=== PATIENT | male | born 1935 | race Caucasian/White ===

== ENCOUNTER 2018-05-15 10:08 | Observation (INO) ==
[2018-05-15] MEDS ORDERED: ONDANSETRON 4 MG/2 ML VIAL IV STA (11:12)
[2018-05-15] MEDS ORDERED: SODIUM CHLORIDE 0.9% 1,000 ML IV STA (11:12)
[2018-05-15 11:38] LABS: Basophils % 0.3 % (0.0-0.8); Eosinophils # 0.1 10*3/uL (0.0-0.87); Eosinophils % 0.7 % (0.00-10.9); Hematocrit 33.3 VOL% (42.0-52.0); Hemoglobin 11.1 GM/DL (14.0-18.0); Immature Granulocytes % 0.7 %; Immature Granulocytes Absolute 0.05 #; Lymphocytes # 0.5 10*3/uL (1.4-4.0); Lymphocytes % 6.8 % (21.2-54.2); Mean Corpuscular HGB Conc 33.3 GM/DL (32-36); Mean Corpuscular Hemoglobin 26 PG (27-34); Mean Corpuscular Volume 77.8 FL (87-102); Mean Platelet Volume 9.8 FL (9.6-12.0); Monocytes # 0.5 10*3/uL (0.11-0.8); Monocytes % 7.5 % (1.7-12.7); Neutrophils # 5.7 10*3/uL (1.4-7.4); Platelet Count 175 T/CUMM (130-400); Red Blood Count 4.28 MC/CUMM (3.8-5.5); Red Cell Distribution Width 15.5 % (9.3-17.3); White Blood Count 6.8 T/CUMM (4-12)
[2018-05-15 11:45] LABS: Apearance,Urine Slightly Hazy (Clear); Bilirubin,Urine Negative (Negative); Blood, Urine Negative (Negative); Glucose,Urine (UA) 50 mg/dL (Negative); Ketones,Urine Negative (Negative); Mucus,Urine Occasional /LPF (Occasional); Nitrite,Urine Negative (Negative); Protein,Urine Negative; RBC,Urine 1 /HPF (0-4); Urine Color Yellow (Yellow); Urine Specific Gravity 1.014 (1.001-1.035)
[2018-05-15 11:46] LABS: Lactic Acid 1.1 MMOL/L (0.4-2.0)
[2018-05-15 11:47] LABS: Albumin 3.5 G/DL (3.4-5.0); Calcium 8.7 MG/DL (8.5-10.1); Osmolality,Calculated 243.2 MOS/KG (273-304); Potassium 4.7 MMOL/L (3.5-5.1); Total Protein 6.6 G/DL (6.4-8.3)
[2018-05-15] MEDS ORDERED: FUROSEMIDE 40 MG/4 ML VIAL IV STA (12:44)
[2018-05-15] MEDS ORDERED: ONDANSETRON 4 MG/2 ML VIAL IV PRN (13:28)
[2018-05-15] MEDS ORDERED: PROMETHAZINE 25 MG/1 ML VIAL IM PRN (13:28)
[2018-05-15] MEDS ORDERED: ENOXAPARIN 30 MG/0.3 ML SYRINGE SUBCUT SCH (13:30)
[2018-05-15] MEDS ORDERED: CLORAZEPATE 3.75 MG TABLET PO PRN (13:33)
[2018-05-15] MEDS: PANTOPRAZOLE 40 MG TABLET PO SCH (14:56)
[2018-05-15] MEDS: FUROSEMIDE 100 MG/10 ML VIAL IV SCH (16:18)
[2018-05-15] MEDS: CARVEDILOL 12.5 MG TABLET PO SCH (16:21)
[2018-05-15] MEDS: ATORVASTATIN 20 MG TABLET PO SCH (21:31)
[2018-05-15] MEDS: traZODone 50 MG TABLET PO SCH (21:35)
[2018-05-15] MEDS: DABIGATRAN 150 MG CAPSULE PO SCH (21:35)
[2018-05-15] MEDS: SERTRALINE 50 MG TABLET PO SCH (21:35)
[2018-05-16 04:45] LABS: Basophils % 0.2 % (0.0-0.8); Eosinophils # 0.1 10*3/uL (0.0-0.87); Eosinophils % 1.2 % (0.00-10.9); Hematocrit 32.5 VOL% (42.0-52.0); Hemoglobin 10.8 GM/DL (14.0-18.0); Immature Granulocytes % 0.6 %; Immature Granulocytes Absolute 0.04 #; Lymphocytes # 0.6 10*3/uL (1.4-4.0); Lymphocytes % 9.5 % (21.2-54.2); Mean Corpuscular HGB Conc 33.2 GM/DL (32-36); Mean Corpuscular Hemoglobin 25 PG (27-34); Mean Corpuscular Volume 76.3 FL (87-102); Mean Platelet Volume 9.3 FL (9.6-12.0); Monocytes # 0.7 10*3/uL (0.11-0.8); Monocytes % 10.6 % (1.7-12.7); Neutrophils # 5.1 10*3/uL (1.4-7.4); Neutrophils % 77.9 % (38.7-73.9); Platelet Count 169 T/CUMM (130-400); Red Blood Count 4.26 MC/CUMM (3.8-5.5); Red Cell Distribution Width 15.5 % (9.3-17.3); White Blood Count 6.5 T/CUMM (4-12)
[2018-05-16 05:22] LABS: Albumin 3.4 G/DL (3.4-5.0); Bilirubin,Total 1.9 MG/DL (0.2-1.0); Calcium 8.5 MG/DL (8.5-10.1); Osmolality,Calculated 245.9 MOS/KG (273-304); Potassium 3.5 MMOL/L (3.5-5.1); Risk Ratio 1.54; Total Protein 6.2 G/DL (6.4-8.3); VLDL CHOLESTEROL 9.8 MG/DL
[2018-05-16] MEDS: DABIGATRAN 150 MG CAPSULE PO SCH ×2 (08:28→21:19)
[2018-05-16] MEDS: LISINOPRIL 20 MG TABLET PO SCH (08:28)
[2018-05-16] MEDS: CARVEDILOL 12.5 MG TABLET PO SCH ×2 (08:29→16:09)
[2018-05-16] MEDS: PANTOPRAZOLE 40 MG TABLET PO SCH (08:29)
[2018-05-16] MEDS: ASPIRIN EC 81 MG TABLET PO SCH (08:29)
[2018-05-16] MEDS: FUROSEMIDE 100 MG/10 ML VIAL IV SCH ×2 (08:29→16:09)
[2018-05-16] MEDS: SERTRALINE 50 MG TABLET PO SCH (21:19)
[2018-05-16] MEDS: ATORVASTATIN 20 MG TABLET PO SCH (21:19)
[2018-05-16] MEDS: traZODone 50 MG TABLET PO SCH (21:19)
[2018-05-17 04:51] LABS: Basophils % 0.3 % (0.0-0.8); Eosinophils # 0.1 10*3/uL (0.0-0.87); Eosinophils % 1.5 % (0.00-10.9); Hematocrit 33.1 VOL% (42.0-52.0); Immature Granulocytes % 0.5 %; Immature Granulocytes Absolute 0.03 #; Lymphocytes # 0.6 10*3/uL (1.4-4.0); Lymphocytes % 9.5 % (21.2-54.2); Mean Corpuscular HGB Conc 33.2 GM/DL (32-36); Mean Corpuscular Hemoglobin 26 PG (27-34); Mean Platelet Volume 9.5 FL (9.6-12.0); Monocytes # 0.8 10*3/uL (0.11-0.8); Monocytes % 11.9 % (1.7-12.7); Neutrophils % 76.3 % (38.7-73.9); Platelet Count 164 T/CUMM (130-400); Red Cell Distribution Width 15.7 % (9.3-17.3); White Blood Count 6.6 T/CUMM (4-12)
[2018-05-17 05:15] LABS: Calcium 8.5 MG/DL (8.5-10.1); Osmolality,Calculated 253.4 MOS/KG (273-304); Potassium 3.9 MMOL/L (3.5-5.1)
[2018-05-17 08:12] VITALS: BP 129/69
[2018-05-17] MEDS: ASPIRIN EC 81 MG TABLET PO SCH (08:34)
[2018-05-17] MEDS: FUROSEMIDE 100 MG/10 ML VIAL IV SCH (08:34)
[2018-05-17] MEDS: DABIGATRAN 150 MG CAPSULE PO SCH (08:34)
[2018-05-17] MEDS: PANTOPRAZOLE 40 MG TABLET PO SCH (08:34)
[2018-05-17] MEDS: LISINOPRIL 20 MG TABLET PO SCH (08:34)
[2018-05-17] MEDS: CARVEDILOL 12.5 MG TABLET PO SCH (08:35)
[2018-05-17] MEDS ORDERED: FUROSEMIDE 40 MG TABLET PO SCH (16:00)
== END 2018-05-17 10:11 | disposition home or self-care (01) ==
LOC: N.EDINP 10:08 → N.ED 10:08 → N.2E 14:09
PROVIDERS: ADMIT Internal Medicine; ATTEND Internal Medicine

== ENCOUNTER 2019-12-15 02:20 | Inpatient (IN) ==
[2019-12-15 03:10] LABS: Basophils % 0.1 % (0.0-0.8); Eosinophils % 0.3 % (0.00-10.9); Hematocrit 45.7 VOL% (42.0-52.0); Hemoglobin 14.3 GM/DL (14.0-18.0); Immature Granulocytes % 0.4 %; Immature Granulocytes Absolute 0.06 #; Lymphocytes # 0.2 10*3/uL (1.4-4.0); Lymphocytes % 1.2 % (21.2-54.2); Mean Corpuscular HGB Conc 31.3 GM/DL (32-36); Mean Corpuscular Volume 89.1 FL (87-102); Mean Platelet Volume 9.3 FL (9.6-12.0); Platelet Count 219 T/CUMM (130-400); Red Blood Count 5.13 MC/CUMM (3.8-5.5); Red Cell Distribution Width 15.7 % (9.3-17.3)
[2019-12-15] MEDS ORDERED: SODIUM CHLORIDE 0.9% 1,000 ML IV STA (03:11)
[2019-12-15 03:23] LABS: Albumin 3.6 G/DL (3.4-5.0); Bilirubin,Total 3.5 MG/DL (0.2-1.0); Osmolality,Calculated 268.5 MOS/KG (273-304); Total Protein 7.5 G/DL (6.4-8.3)
[2019-12-15 04:21] LABS: Lymphocytes 1 % (20-55); Segmented Neutrophils 94 % (50-85); Total Cells Counted 100
[2019-12-15 04:22] LABS: Platelet Estimate Normal
[2019-12-15 04:25] LABS: Polychromasia Slight
[2019-12-15 04:26] LABS: Anisocytosis Slight; Hypochromasia Slight
[2019-12-15 04:27] LABS: Microcytosis 1+
[2019-12-15 04:40] LABS: Apearance,Urine CLEAR (Clear); Bilirubin,Urine Negative (Negative); Blood, Urine Negative (Negative); Glucose,Urine (UA) Negative (Negative); Hyaline Casts,Urine 1 /LPF (0-3); Ketones,Urine Negative (Negative); Mucus,Urine Few /LPF (Occasional); Nitrite,Urine Negative (Negative); Protein,Urine Negative; RBC,Urine 3 /HPF (0-4); Squamous Epithelial Cell,Urine Occasional /HPF (0-10); Urine Color Amber (Yellow); Urine Specific Gravity 1.046 (1.001-1.035); WBC,Urine <1 /HPF (0-6)
[2019-12-15] MEDS ORDERED: PIPERACILLIN/TAZOBACTAM 3,375 MG in SODIUM CHLORIDE 0.9% 100 ML IV STA (04:44)
[2019-12-15] MEDS ORDERED: ACETAMINOPHEN 325 MG TABLET PO PRN (05:22)
[2019-12-15] MEDS ORDERED: ONDANSETRON 4 MG/2 ML VIAL IV PRN (05:22)
[2019-12-15] MEDS ORDERED: DEXTROSE 50% 25 GM/50 ML SYRINGE IV PRN (05:22)
[2019-12-15] MEDS ORDERED: DEXTROSE 10% 250 ML BAG IV PRN (05:22)
[2019-12-15] MEDS ORDERED: GLUCAGON 1 MG VIAL IM PRN ×2 (05:22)
[2019-12-15] MEDS ORDERED: NITROGLYCERIN SL 0.4 MG TABLET SL PRN (05:32)
[2019-12-15] MEDS ORDERED: ACETAMINOPHEN 500 MG TABLET PO STA (06:02)
[2019-12-15] MEDS ORDERED: ACETAMINOPHEN 500 MG TABLET ONE (06:03)
[2019-12-15] MEDS ORDERED: FUROSEMIDE 20 MG TABLET PO SCH (08:00)
[2019-12-15] MEDS: INSULIN REGULAR 100 UNIT/ML SUBCUT SCH ×4 (08:51→20:17)
[2019-12-15] MEDS ORDERED: NON-FORMULARY MEDICATION (Omeprazole 20 MG) PO SCH (09:00)
[2019-12-15 09:29] LABS: Ferritin 38.6 ng/ml (26-388)
[2019-12-15] MEDS: DABIGATRAN 150 MG CAPSULE PO SCH ×2 (10:08→20:17)
[2019-12-15] MEDS: CYANOCOBALAMIN 500 MCG TABLET PO SCH (10:08)
[2019-12-15] MEDS: ASCORBIC ACID 500 MG TABLET PO SCH (10:08)
[2019-12-15] MEDS: carvediloL 12.5 MG TABLET PO SCH ×2 (10:08→17:58)
[2019-12-15] MEDS: PANTOPRAZOLE 40 MG TABLET PO SCH (10:08)
[2019-12-15] MEDS: ASPIRIN EC 81 MG TABLET PO SCH (10:08)
[2019-12-15] MEDS: POTASSIUM CHLORIDE 20 MEQ TABLET PO SCH (10:08)
[2019-12-15] MEDS: FUROSEMIDE 40 MG/4 ML VIAL IV SCH ×2 (10:10→17:58)
[2019-12-15] MEDS: LEVOFLOXACIN INJ 750 MG in PREMIX 1 EACH IV SCH (10:50)
[2019-12-15] MEDS: PIPERACILLIN/TAZOBACTAM 3,375 MG in SODIUM CHLORIDE 0.9% 100 ML IV SCH (18:50)
[2019-12-15] MEDS: traZODone 50 MG TABLET PO SCH (20:16)
[2019-12-15] MEDS: ATORVASTATIN 10 MG TABLET PO SCH (20:17)
[2019-12-15] MEDS: SERTRALINE 50 MG TABLET PO SCH (20:17)
[2019-12-16] MEDS: PIPERACILLIN/TAZOBACTAM 3,375 MG in SODIUM CHLORIDE 0.9% 100 ML IV SCH (02:21)
[2019-12-16 06:38] LABS: Basophils % 0.1 % (0.0-0.8); Hematocrit 37.5 VOL% (42.0-52.0); Immature Granulocytes % 1.7 %; Immature Granulocytes Absolute 0.34 #; Lymphocytes # 0.4 10*3/uL (1.4-4.0); Lymphocytes % 1.8 % (21.2-54.2); Mean Corpuscular Volume 87.6 FL (87-102); Mean Platelet Volume 9.5 FL (9.6-12.0); Monocytes % 3.8 % (1.7-12.7); Neutrophils % 92.6 % (38.7-73.9); Platelet Count 126 T/CUMM (130-400); Red Blood Count 4.28 MC/CUMM (3.8-5.5); White Blood Count 20.2 T/CUMM (4-12)
[2019-12-16 07:03] LABS: Albumin 2.8 G/DL (3.4-5.0); Calcium 8.2 MG/DL (8.5-10.1); Osmolality,Calculated 270.7 MOS/KG (273-304); Total Protein 6.2 G/DL (6.4-8.3)
[2019-12-16 07:11] LABS: Hypochromasia 1+; Lymphocytes 1 % (20-55); Ovalocytes Slight; Platelet Estimate Normal; Segmented Neutrophils 98 % (50-85); Total Cells Counted 100
[2019-12-16 07:12] LABS: Microcytosis 1+
[2019-12-16] MEDS: INSULIN REGULAR 100 UNIT/ML SUBCUT SCH ×4 (07:31→20:12)
[2019-12-16] MEDS: LEVOFLOXACIN INJ 750 MG in PREMIX 1 EACH IV SCH (08:26)
[2019-12-16] MEDS: ASCORBIC ACID 500 MG TABLET PO SCH (08:29)
[2019-12-16] MEDS: CYANOCOBALAMIN 500 MCG TABLET PO SCH (08:29)
[2019-12-16] MEDS: ASPIRIN EC 81 MG TABLET PO SCH (08:29)
[2019-12-16] MEDS: DABIGATRAN 150 MG CAPSULE PO SCH (08:29)
[2019-12-16] MEDS: carvediloL 12.5 MG TABLET PO SCH ×2 (08:29→16:29)
[2019-12-16] MEDS: POTASSIUM CHLORIDE 20 MEQ TABLET PO SCH (08:29)
[2019-12-16] MEDS: PANTOPRAZOLE 40 MG TABLET PO SCH (08:29)
[2019-12-16] MEDS: FUROSEMIDE 40 MG/4 ML VIAL IV SCH ×2 (08:29→16:28)
[2019-12-16] MEDS: metroNIDAZOLE INJ 500 MG in PREMIX 1 EACH IV SCH ×3 (10:32→20:11)
[2019-12-16 10:35] LABS: Hepatitis B Core IgM Quant 0.18 Index; Hepatitis B Surface Ag Result Negative (Negative); Hepatitis C Virus Ab Quant 0.07 Index; Hepatitis C Virus Ab Result Negative (Negative)
[2019-12-16 11:39] LABS: Bilirubin,Direct 4.74 MG/DL (0.0-0.20); Bilirubin,Indirect 1.1 MG/DL (0.0-1.0); Bilirubin,Total 5.8 MG/DL (0.2-1.0)
[2019-12-16] MEDS: traZODone 50 MG TABLET PO SCH (20:11)
[2019-12-16] MEDS: SERTRALINE 50 MG TABLET PO SCH (20:12)
[2019-12-16] MEDS: ATORVASTATIN 10 MG TABLET PO SCH (20:12)
[2019-12-17] MEDS: metroNIDAZOLE INJ 500 MG in PREMIX 1 EACH IV SCH ×5 (02:15→21:00)
[2019-12-17 06:16] LABS: Basophils % 0.2 % (0.0-0.8); Eosinophils % 0.1 % (0.00-10.9); Hematocrit 37.9 VOL% (42.0-52.0); Hemoglobin 12.2 GM/DL (14.0-18.0); Immature Granulocytes Absolute 0.34 #; Lymphocytes # 0.4 10*3/uL (1.4-4.0); Lymphocytes % 2.2 % (21.2-54.2); Mean Corpuscular HGB Conc 32.2 GM/DL (32-36); Mean Corpuscular Volume 86.7 FL (87-102); Mean Platelet Volume 9.8 FL (9.6-12.0); Monocytes % 2.8 % (1.7-12.7); Neutrophils % 92.7 % (38.7-73.9); Platelet Count 143 T/CUMM (130-400); Red Blood Count 4.37 MC/CUMM (3.8-5.5); Red Cell Distribution Width 15.9 % (9.3-17.3); White Blood Count 17.2 T/CUMM (4-12)
[2019-12-17 06:34] LABS: Lymphocytes 1 % (20-55); Segmented Neutrophils 97 % (50-85); Total Cells Counted 100
[2019-12-17 06:35] LABS: Hypochromasia Slight; Microcytosis Slight; Ovalocytes Slight; Platelet Estimate Normal
[2019-12-17 06:42] LABS: Calcium 8.1 MG/DL (8.5-10.1); Osmolality,Calculated 272.5 MOS/KG (273-304)
[2019-12-17] MEDS ORDERED: POTASSIUM CHLORIDE 20 MEQ TABLET PO ONE (08:00)
[2019-12-17 08:33] LABS: Albumin 2.7 G/DL (3.4-5.0); Bilirubin,Direct 1.9 MG/DL (0.0-0.20); Bilirubin,Total 2.9 MG/DL (0.2-1.0); Total Protein 5.9 G/DL (6.4-8.3)
[2019-12-17] MEDS: INSULIN REGULAR 100 UNIT/ML SUBCUT SCH ×4 (08:44→21:00)
[2019-12-17] MEDS: CYANOCOBALAMIN 500 MCG TABLET PO SCH (08:46)
[2019-12-17] MEDS: POTASSIUM CHLORIDE 20 MEQ TABLET PO SCH (08:46)
[2019-12-17] MEDS: carvediloL 12.5 MG TABLET PO SCH ×2 (08:46→17:00)
[2019-12-17] MEDS: ASPIRIN EC 81 MG TABLET PO SCH (08:46)
[2019-12-17] MEDS: PANTOPRAZOLE 40 MG TABLET PO SCH (08:46)
[2019-12-17] MEDS: FUROSEMIDE 40 MG/4 ML VIAL IV SCH ×2 (08:46→16:11)
[2019-12-17] MEDS: LEVOFLOXACIN INJ 750 MG in PREMIX 1 EACH IV SCH (08:46)
[2019-12-17] MEDS: ASCORBIC ACID 500 MG TABLET PO SCH (08:47)
[2019-12-17] MEDS: traZODone 50 MG TABLET PO SCH (20:59)
[2019-12-17] MEDS: SERTRALINE 50 MG TABLET PO SCH (21:01)
[2019-12-17] MEDS: ATORVASTATIN 10 MG TABLET PO SCH (21:01)
[2019-12-17] MEDS: DABIGATRAN 150 MG CAPSULE PO SCH (21:01)
[2019-12-18] MEDS: metroNIDAZOLE INJ 500 MG in PREMIX 1 EACH IV SCH ×2 (03:11→08:45)
[2019-12-18 05:58] LABS: Basophils % 0.1 % (0.0-0.8); Eosinophils % 0.3 % (0.00-10.9); Hemoglobin 11.8 GM/DL (14.0-18.0); Immature Granulocytes % 1.2 %; Immature Granulocytes Absolute 0.14 #; Lymphocytes # 0.6 10*3/uL (1.4-4.0); Lymphocytes % 4.9 % (21.2-54.2); Mean Corpuscular HGB Conc 31.9 GM/DL (32-36); Mean Corpuscular Volume 86.7 FL (87-102); Mean Platelet Volume 10.2 FL (9.6-12.0); Monocytes % 3.5 % (1.7-12.7); Platelet Count 151 T/CUMM (130-400); Red Blood Count 4.27 MC/CUMM (3.8-5.5); Red Cell Distribution Width 16.1 % (9.3-17.3); White Blood Count 11.4 T/CUMM (4-12)
[2019-12-18 06:26] LABS: Calcium 8.1 MG/DL (8.5-10.1); Osmolality,Calculated 277.1 MOS/KG (273-304)
[2019-12-18 06:27] LABS: Albumin 2.8 G/DL (3.4-5.0); Bilirubin,Direct 1.5 MG/DL (0.0-0.20); Bilirubin,Indirect 0.9 MG/DL (0.0-1.0); Bilirubin,Total 2.4 MG/DL (0.2-1.0); Total Protein 5.9 G/DL (6.4-8.3)
[2019-12-18 06:39] LABS: Lymphocytes 4 % (20-55); Platelet Estimate Adequate; Segmented Neutrophils 94 % (50-85); Total Cells Counted 100
[2019-12-18 06:40] LABS: Hypochromasia 1+; Microcytosis Slight; Ovalocytes Slight
[2019-12-18] MEDS: INSULIN REGULAR 100 UNIT/ML SUBCUT SCH ×4 (08:10→20:47)
[2019-12-18] MEDS: PANTOPRAZOLE 40 MG TABLET PO SCH (08:40)
[2019-12-18] MEDS: ASPIRIN EC 81 MG TABLET PO SCH (08:40)
[2019-12-18] MEDS: POTASSIUM CHLORIDE 20 MEQ TABLET PO SCH (08:40)
[2019-12-18] MEDS: ASCORBIC ACID 500 MG TABLET PO SCH (08:41)
[2019-12-18] MEDS: carvediloL 12.5 MG TABLET PO SCH ×2 (08:41→16:00)
[2019-12-18] MEDS: FUROSEMIDE 40 MG/4 ML VIAL IV SCH ×2 (08:43→15:58)
[2019-12-18] MEDS: LEVOFLOXACIN INJ 750 MG in PREMIX 1 EACH IV SCH (08:45)
[2019-12-18] MEDS: CYANOCOBALAMIN 500 MCG TABLET PO SCH (09:43)
[2019-12-18] MEDS: DABIGATRAN 150 MG CAPSULE PO SCH ×2 (11:47→20:45)
[2019-12-18] MEDS: ATORVASTATIN 10 MG TABLET PO SCH (20:45)
[2019-12-18] MEDS: SERTRALINE 50 MG TABLET PO SCH (20:45)
[2019-12-18] MEDS: traZODone 50 MG TABLET PO SCH (20:45)
[2019-12-19 07:01] LABS: Basophils % 0.2 % (0.0-0.8); Eosinophils % 0.4 % (0.00-10.9); Hematocrit 41.4 VOL% (42.0-52.0); Hemoglobin 13.2 GM/DL (14.0-18.0); Immature Granulocytes % 0.7 %; Immature Granulocytes Absolute 0.06 #; Lymphocytes # 0.6 10*3/uL (1.4-4.0); Lymphocytes % 7.5 % (21.2-54.2); Mean Corpuscular HGB Conc 31.9 GM/DL (32-36); Mean Corpuscular Volume 87.2 FL (87-102); Mean Platelet Volume 9.5 FL (9.6-12.0); Monocytes % 5.6 % (1.7-12.7); Neutrophils % 85.6 % (38.7-73.9); Platelet Count 149 T/CUMM (130-400); Red Blood Count 4.75 MC/CUMM (3.8-5.5); Red Cell Distribution Width 15.7 % (9.3-17.3); White Blood Count 8.3 T/CUMM (4-12)
[2019-12-19 07:22] LABS: Calcium 8.7 MG/DL (8.5-10.1); Osmolality,Calculated 276.1 MOS/KG (273-304)
[2019-12-19 07:24] LABS: Bilirubin,Direct 1.54 MG/DL (0.0-0.20); Bilirubin,Indirect 1.9 MG/DL (0.0-1.0); Bilirubin,Total 3.4 MG/DL (0.2-1.0); Total Protein 6.4 G/DL (6.4-8.3)
[2019-12-19 07:25] LABS: Ferritin 61.7 ng/ml (26-388)
[2019-12-19] MEDS: INSULIN REGULAR 100 UNIT/ML SUBCUT SCH ×2 (07:32→11:40)
[2019-12-19] MEDS ORDERED: LEVOFLOXACIN 750 MG TABLET PO SCH (09:00)
[2019-12-19] MEDS: FUROSEMIDE 40 MG/4 ML VIAL IV SCH (09:16)
[2019-12-19] MEDS: POTASSIUM CHLORIDE 20 MEQ TABLET PO SCH (09:16)
[2019-12-19] MEDS: PANTOPRAZOLE 40 MG TABLET PO SCH (09:17)
[2019-12-19] MEDS: ASPIRIN EC 81 MG TABLET PO SCH (09:17)
[2019-12-19] MEDS: DABIGATRAN 150 MG CAPSULE PO SCH (09:17)
[2019-12-19] MEDS: ASCORBIC ACID 500 MG TABLET PO SCH (09:17)
[2019-12-19] MEDS: CYANOCOBALAMIN 500 MCG TABLET PO SCH (09:17)
[2019-12-19] MEDS: carvediloL 12.5 MG TABLET PO SCH (09:17)
[2019-12-19 12:45] VITALS: BP 140/83
== END 2019-12-19 13:58 | disposition home health service (06) | DRG 871 ==
LOC: N.ED 02:20 → N.EDINP 05:22 → SUATTDRO 05:22 → N.EDINP 07:05 → N.CC 07:17 → N.2E 12-17 14:41 → N.3E 12-18 18:18
PROVIDERS: ADMIT Family Medicine; ATTEND Internal Medicine

== ENCOUNTER 2020-10-15 08:43 | Observation (INO) ==
[2020-10-15] MEDS ORDERED: FUROSEMIDE 100 MG/10 ML VIAL IV STA (09:06)
[2020-10-15] MEDS ORDERED: ONDANSETRON 4 MG/2 ML VIAL IV STA (09:15)
[2020-10-15 09:34] LABS: Basophils % 0.3 % (0.0-0.8); Eosinophils # 0.1 10*3/uL (0.0-0.87); Eosinophils % 0.5 % (0.00-10.9); Hematocrit 41.1 VOL% (42.0-52.0); Hemoglobin 12.7 GM/DL (14.0-18.0); Immature Granulocytes % 0.8 %; Immature Granulocytes Absolute 0.12 #; Lymphocytes # 0.4 10*3/uL (1.4-4.0); Lymphocytes % 2.3 % (21.2-54.2); Mean Corpuscular HGB Conc 30.9 GM/DL (32-36); Mean Platelet Volume 10.1 FL (9.6-12.0); Monocytes % 4.5 % (1.7-12.7); Neutrophils % 91.6 % (38.7-73.9); Platelet Count 202 T/CUMM (130-400); Red Blood Count 4.67 MC/CUMM (3.8-5.5); White Blood Count 15.4 T/CUMM (4-12)
[2020-10-15 09:45] LABS: INR 1.3; Partial Thromboplastin Time 35.8 SECS (23.9-33.8)
[2020-10-15 09:48] LABS: Blood, Urine Negative (Negative); Glucose,Urine (UA) Negative (Negative); Hyaline Casts,Urine 1 /LPF (0-3); Ketones,Urine Negative (Negative); Mucus,Urine Few /LPF (Occasional); Nitrite,Urine Negative (Negative); Protein,Urine 30 MG/DL; RBC,Urine 6 /HPF (0-4); Squamous Epithelial Cell,Urine Occasional /HPF (0-10); Urine Appearance CLEAR (Clear); Urine Color Amber (Yellow); Urine Specific Gravity 1.024 (1.001-1.035); WBC,Urine 2 /HPF (0-6)
[2020-10-15 09:49] LABS: Bilirubin,Urine Moderate mg/dL (Negative)
[2020-10-15 09:54] LABS: Band Neutrophils 2 % (0-10); Eosinophils 1 % (0-10); Hypochromasia 1+; Lymphocytes 3 % (20-55); Microcytosis 1+; Ovalocytes Slight; Segmented Neutrophils 90 % (50-85); Total Cells Counted 100
[2020-10-15 09:55] LABS: Platelet Estimate Normal
[2020-10-15 10:05] LABS: Albumin 3.7 G/DL (3.4-5.0); Bilirubin,Total 4.3 MG/DL (0.2-1.0); Calcium 9.4 MG/DL (8.5-10.1); Osmolality,Calculated 283.5 MOS/KG (273-304); Total Protein 7.1 G/DL (6.4-8.2)
[2020-10-15] MEDS ORDERED: LEVOFLOXACIN INJ 500 MG in PREMIX 1 EACH IV STA (10:42)
[2020-10-15] MEDS ORDERED: DEXTROSE 50% 25 GM/50 ML VIAL IV PRN (12:22)
[2020-10-15] MEDS ORDERED: DOCUSATE SODIUM 100 MG CAPSULE PO PRN (12:22)
[2020-10-15] MEDS ORDERED: hydrALAZINE 20 MG/1 ML VIAL IV PRN (12:22)
[2020-10-15] MEDS ORDERED: ONDANSETRON 4 MG/2 ML VIAL IV PRN (12:22)
[2020-10-15] MEDS ORDERED: guaiFENesin/DM ER 600-30 MG TABLET PO PRN (12:22)
[2020-10-15] MEDS ORDERED: GLUCAGON 1 MG VIAL IM PRN (12:22)
[2020-10-15] MEDS ORDERED: ACETAMINOPHEN 325 MG TABLET PO PRN (12:22)
[2020-10-15] MEDS ORDERED: MAGNESIUM SULF RIDER 2 GM in PREMIX 1 EACH IV PRN (12:29)
[2020-10-15] MEDS ORDERED: MAGNESIUM SULF RIDER 4 GM in PREMIX 1 EACH IV PRN (12:29)
[2020-10-15] MEDS ORDERED: NITROGLYCERIN SL 0.4 MG TABLET SL PRN (12:30)
[2020-10-15] MEDS ORDERED: ENOXAPARIN 40 MG/0.4 ML SYRINGE SUBCUT SCH (12:30)
[2020-10-15] MEDS ORDERED: POTASSIUM CHLORIDE 20 MEQ TABLET PO PRN (12:30)
[2020-10-15] MEDS: ALBUTEROL 2.5 MG/3 ML NEB RESP TX SCH ×2 (13:50→18:08)
[2020-10-15] MEDS: ursodioL 300 MG CAPSULE PO SCH (20:44)
[2020-10-15] MEDS: DABIGATRAN 150 MG CAPSULE PO SCH (20:44)
[2020-10-15] MEDS: carvediloL 12.5 MG TABLET PO SCH (20:44)
[2020-10-15] MEDS: SERTRALINE 50 MG TABLET PO SCH (20:44)
[2020-10-15] MEDS ORDERED: ATORVASTATIN 10 MG TABLET PO SCH (21:00)
[2020-10-16] MEDS: ALBUTEROL 2.5 MG/3 ML NEB RESP TX SCH ×4 (01:02→21:06)
[2020-10-16 04:41] LABS: Basophils % 0.1 % (0.0-0.8); Hematocrit 35.4 VOL% (42.0-52.0); Hemoglobin 11.1 GM/DL (14.0-18.0); Immature Granulocytes Absolute 0.13 #; Lymphocytes # 0.3 10*3/uL (1.4-4.0); Lymphocytes % 2.6 % (21.2-54.2); Mean Corpuscular HGB Conc 31.4 GM/DL (32-36); Mean Corpuscular Volume 86.6 FL (87-102); Mean Platelet Volume 9.9 FL (9.6-12.0); Monocytes % 5.6 % (1.7-12.7); Neutrophils % 90.7 % (38.7-73.9); Platelet Count 147 T/CUMM (130-400); Red Blood Count 4.09 MC/CUMM (3.8-5.5); White Blood Count 12.6 T/CUMM (4-12)
[2020-10-16 05:11] LABS: Band Neutrophils 1 % (0-10); Hypochromasia 1+; Lymphocytes 1 % (20-55); Microcytosis 1+; Ovalocytes Slight; Platelet Estimate Adequate; Segmented Neutrophils 93 % (50-85); Total Cells Counted 100
[2020-10-16 05:27] LABS: Blood Urea Nitrogen 26 MG/DL (7-18); Calcium 8.6 MG/DL (8.5-10.1); Carbon Dioxide 33 MMOL/L (21-32); Estimated Glom Filtration Rate 66 ML/MIN; Glucose 122 MG/DL (74-106); HDL Cholesterol 39 MG/DL (40-60); Potassium 3.7 MMOL/L (3.5-5.1); Risk Ratio 1.28; Sodium 136 MMOL/L (136-145); Thyroid Stimulating Hormone 0.771 uIU/ml (0.358-3.74); Triglycerides 39 MG/DL (2-150); VLDL CHOLESTEROL 7.8 MG/DL
[2020-10-16] MEDS: ursodioL 300 MG CAPSULE PO SCH ×2 (09:44→20:43)
[2020-10-16] MEDS: DABIGATRAN 150 MG CAPSULE PO SCH ×2 (09:45→20:50)
[2020-10-16] MEDS: CYANOCOBALAMIN 500 MCG TABLET PO SCH (09:45)
[2020-10-16] MEDS: carvediloL 12.5 MG TABLET PO SCH ×2 (09:45→20:42)
[2020-10-16] MEDS: POTASSIUM CHLORIDE 10 MEQ TABLET PO SCH (09:46)
[2020-10-16] MEDS: ASCORBIC ACID 500 MG TABLET PO SCH (09:46)
[2020-10-16] MEDS: ASPIRIN EC 81 MG TABLET PO SCH (09:46)
[2020-10-16] MEDS: PANTOPRAZOLE 40 MG TABLET PO SCH (09:46)
[2020-10-16] MEDS: FUROSEMIDE 40 MG/4 ML VIAL IV SCH (09:55)
[2020-10-16] MEDS: SERTRALINE 50 MG TABLET PO SCH (20:51)
[2020-10-17] MEDS: ALBUTEROL 2.5 MG/3 ML NEB RESP TX SCH ×2 (02:50→07:25)
[2020-10-17 06:08] LABS: Basophils % 0.4 % (0.0-0.8); Eosinophils # 0.1 10*3/uL (0.0-0.87); Eosinophils % 1.5 % (0.00-10.9); Hematocrit 34.3 VOL% (42.0-52.0); Hemoglobin 10.5 GM/DL (14.0-18.0); Immature Granulocytes % 0.5 %; Immature Granulocytes Absolute 0.04 #; Lymphocytes # 0.5 10*3/uL (1.4-4.0); Lymphocytes % 6.9 % (21.2-54.2); Mean Corpuscular HGB Conc 30.6 GM/DL (32-36); Mean Corpuscular Volume 88.6 FL (87-102); Mean Platelet Volume 10.1 FL (9.6-12.0); Monocytes % 6.8 % (1.7-12.7); Neutrophils % 83.9 % (38.7-73.9); Platelet Count 149 T/CUMM (130-400); Red Blood Count 3.87 MC/CUMM (3.8-5.5); Red Cell Distribution Width 15.1 % (9.3-17.3); White Blood Count 7.4 T/CUMM (4-12)
[2020-10-17 06:45] LABS: Albumin 2.8 G/DL (3.4-5.0); Bilirubin,Direct 2.09 MG/DL (0.0-0.20); Bilirubin,Indirect 1.5 MG/DL (0.0-1.0); Bilirubin,Total 3.6 MG/DL (0.2-1.0); Total Protein 5.7 G/DL (6.4-8.2)
[2020-10-17 07:00] LABS: Band Neutrophils 4 % (0-10); Eosinophils 3 % (0-10); Lymphocytes 9 % (20-55); Platelet Estimate Adequate; Segmented Neutrophils 76 % (50-85); Total Cells Counted 100
[2020-10-17 07:01] LABS: Anisocytosis 1+
[2020-10-17 07:12] LABS: Calcium 8.6 MG/DL (8.5-10.1); Osmolality,Calculated 282.4 MOS/KG (273-304)
[2020-10-17 08:31] VITALS: BP 132/98
[2020-10-17] MEDS ORDERED: CEFUROXIME 500 MG TABLET PO SCH (09:00)
[2020-10-17] MEDS ORDERED: AZITHROMYCIN 250 MG TABLET PO SCH (09:00)
[2020-10-17] MEDS: carvediloL 12.5 MG TABLET PO SCH (09:44)
[2020-10-17] MEDS: POTASSIUM CHLORIDE 10 MEQ TABLET PO SCH (09:44)
[2020-10-17] MEDS: ursodioL 300 MG CAPSULE PO SCH (09:45)
[2020-10-17] MEDS: PANTOPRAZOLE 40 MG TABLET PO SCH (09:45)
[2020-10-17] MEDS: ASCORBIC ACID 500 MG TABLET PO SCH (09:45)
[2020-10-17] MEDS: DABIGATRAN 150 MG CAPSULE PO SCH (09:45)
[2020-10-17] MEDS: ASPIRIN EC 81 MG TABLET PO SCH (09:45)
[2020-10-17] MEDS: FUROSEMIDE 40 MG/4 ML VIAL IV SCH (09:46)
[2020-10-17] MEDS: CYANOCOBALAMIN 500 MCG TABLET PO SCH (10:28)
== END 2020-10-17 14:00 | disposition home or self-care (01) ==
LOC: N.ED 08:43 → N.EDINP 08:43 → N.TELES 12:52
PROVIDERS: ADMIT Internal Medicine; ATTEND Internal Medicine

== ENCOUNTER 2021-04-14 14:50 | Observation (INO) ==
[2021-04-14] MEDS ORDERED: ONDANSETRON 4 MG/2 ML VIAL IV STA (15:19)
[2021-04-14] MEDS ORDERED: SODIUM CHLORIDE 0.9% 1,000 ML IV STA (15:19)
[2021-04-14] MEDS ORDERED: VANCOMYCIN INJ 1,000 MG in SODIUM CHLORIDE 0.9% 250 ML IV STA (16:05)
[2021-04-14 16:27] LABS: Basophils % 0.1 % (0.0-0.8); Hematocrit 34.6 VOL% (42.0-52.0); Hemoglobin 10.6 GM/DL (14.0-18.0); Immature Granulocytes Absolute 0.11 #; Lymphocytes # 0.3 10*3/uL (1.4-4.0); Lymphocytes % 2.3 % (21.2-54.2); Mean Corpuscular HGB Conc 30.6 GM/DL (32-36); Monocytes % 3.2 % (1.7-12.7); Neutrophils % 93.4 % (38.7-73.9); Platelet Count 153 T/CUMM (130-400); Red Blood Count 4.17 MC/CUMM (3.8-5.5); Red Cell Distribution Width 16.5 % (9.3-17.3); White Blood Count 11.5 T/CUMM (4-12)
[2021-04-14 16:41] LABS: Albumin 3.1 G/DL (3.4-5.0); Bilirubin,Total 4.6 MG/DL (0.20-1.00); Calcium 8.6 MG/DL (8.5-10.1); Potassium 4.6 MMOL/L (3.5-5.1); Total Protein 6.5 G/DL (6.4-8.2)
[2021-04-14 17:07] LABS: Hypochromasia 1+; Lymphocytes 3 % (20-55); Metamyelocytes 1 %; Microcytosis 1+; Platelet Estimate Adequate; Segmented Neutrophils 96 % (50-85); Total Cells Counted 100
[2021-04-14] MEDS ORDERED: GLUCAGON 1 MG VIAL IM PRN (17:24)
[2021-04-14] MEDS ORDERED: ACETAMINOPHEN 325 MG TABLET PO PRN (17:24)
[2021-04-14] MEDS ORDERED: DOCUSATE SODIUM 100 MG CAPSULE PO PRN (17:24)
[2021-04-14] MEDS ORDERED: DEXTROSE 50% 25 GM/50 ML VIAL IV PRN (17:24)
[2021-04-14] MEDS ORDERED: ONDANSETRON 4 MG/2 ML VIAL IV PRN (17:24)
[2021-04-14 17:29] LABS: Bilirubin,Urine Negative (Negative); Blood, Urine Negative (Negative); Glucose,Urine (UA) Negative (Negative); Hyaline Casts,Urine 1 /LPF (0-3); Ketones,Urine Negative (Negative); Mucus,Urine Occasional /LPF (Occasional); Nitrite,Urine Negative (Negative); Protein,Urine Negative; RBC,Urine 3 /HPF (0-4); Urine Appearance CLEAR (Clear); Urine Color Amber (Yellow); Urine Specific Gravity 1.013 (1.001-1.035)
[2021-04-14] MEDS: traZODone 50 MG TABLET PO SCH (21:09)
[2021-04-14] MEDS: DABIGATRAN 150 MG CAPSULE PO SCH (21:09)
[2021-04-14] MEDS: carvediloL 12.5 MG TABLET PO SCH (21:10)
[2021-04-14] MEDS: SODIUM CHLORIDE 0.45% 1,000 ML IV SCH (21:13)
[2021-04-15] MEDS: ursodioL 300 MG CAPSULE PO SCH ×3 (00:42→20:01)
[2021-04-15 05:23] LABS: Basophils % 0.3 % (0.0-0.8); Eosinophils # 0.1 10*3/uL (0.0-0.87); Eosinophils % 1.6 % (0.00-10.9); Hematocrit 31.3 VOL% (42.0-52.0); Hemoglobin 9.6 GM/DL (14.0-18.0); Immature Granulocytes % 0.3 %; Immature Granulocytes Absolute 0.02 #; Lymphocytes # 0.5 10*3/uL (1.4-4.0); Lymphocytes % 9.4 % (21.2-54.2); Mean Corpuscular HGB Conc 30.7 GM/DL (32-36); Mean Platelet Volume 9.9 FL (9.6-12.0); Monocytes % 7.5 % (1.7-12.7); Neutrophils % 80.9 % (38.7-73.9); Platelet Count 123 T/CUMM (130-400); Red Blood Count 3.77 MC/CUMM (3.8-5.5); Red Cell Distribution Width 16.7 % (9.3-17.3); White Blood Count 5.8 T/CUMM (4-12)
[2021-04-15 05:40] LABS: Albumin 2.8 G/DL (3.4-5.0); Bilirubin,Total 4.4 MG/DL (0.20-1.00); Calcium 8.2 MG/DL (8.5-10.1); Potassium 4.2 MMOL/L (3.5-5.1); Total Protein 5.7 G/DL (6.4-8.2)
[2021-04-15] MEDS: ASPIRIN EC 81 MG TABLET PO SCH (09:07)
[2021-04-15] MEDS: SODIUM CHLORIDE 0.45% 1,000 ML IV SCH ×2 (09:07→23:16)
[2021-04-15] MEDS: CHOLECALCIFEROL 1,000 UNIT TABLET PO SCH ×2 (09:07→20:00)
[2021-04-15] MEDS: DABIGATRAN 150 MG CAPSULE PO SCH (09:07)
[2021-04-15] MEDS: ASCORBIC ACID 500 MG TABLET PO SCH (09:08)
[2021-04-15] MEDS: carvediloL 12.5 MG TABLET PO SCH ×2 (09:08→18:22)
[2021-04-15] MEDS: PANTOPRAZOLE 40 MG TABLET PO SCH (09:08)
[2021-04-15] MEDS: AMPICILLIN INJ 2,000 MG in SODIUM CHLORIDE 0.9% 100 ML IV SCH ×4 (13:59→23:16)
[2021-04-15] MEDS: traZODone 50 MG TABLET PO SCH (20:01)
[2021-04-15] MEDS ORDERED: CYANOCOBALAMIN 500 MCG TABLET PO SCH (21:00)
[2021-04-16] MEDS: AMPICILLIN INJ 2,000 MG in SODIUM CHLORIDE 0.9% 100 ML IV SCH ×2 (02:09→06:14)
[2021-04-16 05:53] LABS: Basophils % 0.4 % (0.0-0.8); Eosinophils # 0.1 10*3/uL (0.0-0.87); Hemoglobin 10.5 GM/DL (14.0-18.0); Immature Granulocytes % 0.4 %; Immature Granulocytes Absolute 0.03 #; Lymphocytes # 0.4 10*3/uL (1.4-4.0); Lymphocytes % 6.4 % (21.2-54.2); Mean Corpuscular Volume 83.5 FL (87-102); Mean Platelet Volume 9.7 FL (9.6-12.0); Monocytes % 6.4 % (1.7-12.7); Neutrophils % 84.4 % (38.7-73.9); Platelet Count 144 T/CUMM (130-400); Red Blood Count 4.19 MC/CUMM (3.8-5.5); Red Cell Distribution Width 16.7 % (9.3-17.3); White Blood Count 6.9 T/CUMM (4-12)
[2021-04-16 06:08] LABS: Bilirubin,Total 2.9 MG/DL (0.20-1.00); Calcium 8.6 MG/DL (8.5-10.1); Osmolality,Calculated 273.1 MOS/KG (273-304); Potassium 4.8 MMOL/L (3.5-5.1); Total Protein 6.2 G/DL (6.4-8.2)
[2021-04-16 08:33] VITALS: BP 171/67
[2021-04-16] MEDS: CHOLECALCIFEROL 1,000 UNIT TABLET PO SCH (09:19)
[2021-04-16] MEDS: carvediloL 12.5 MG TABLET PO SCH (09:19)
[2021-04-16] MEDS: ASPIRIN EC 81 MG TABLET PO SCH (09:20)
[2021-04-16] MEDS: ursodioL 300 MG CAPSULE PO SCH (09:20)
[2021-04-16] MEDS: ASCORBIC ACID 500 MG TABLET PO SCH (09:20)
[2021-04-16] MEDS: PANTOPRAZOLE 40 MG TABLET PO SCH (09:20)
== END 2021-04-16 11:09 | disposition home or self-care (01) ==
LOC: N.EDINP 14:50 → N.ED 14:50 → N.5E 18:15
PROVIDERS: ADMIT Hospitalist; ATTEND Hospitalist

== ENCOUNTER 2021-07-23 17:13 | Inpatient (IN) ==
[2021-07-23] MEDS ORDERED: PANTOPRAZOLE 40 MG VIAL IV STA (18:03)
[2021-07-23 18:22] LABS: Basophils % 0.2 % (0.0-0.8); Eosinophils # 0.1 10*3/uL (0.0-0.87); Eosinophils % 1.6 % (0.00-10.9); Hematocrit 23.3 VOL% (42.0-52.0); Immature Granulocytes % 0.7 %; Immature Granulocytes Absolute 0.04 #; Lymphocytes # 0.8 10*3/uL (1.4-4.0); Lymphocytes % 14.6 % (21.2-54.2); Mean Corpuscular HGB Conc 26.6 GM/DL (32-36); Mean Corpuscular Volume 74.9 FL (87-102); Monocytes % 8.1 % (1.7-12.7); Neutrophils % 74.8 % (38.7-73.9); Platelet Count 138 T/CUMM (130-400); Red Blood Count 3.11 MC/CUMM (3.8-5.5); Red Cell Distribution Width 21.1 % (9.3-17.3); White Blood Count 5.6 T/CUMM (4-12)
[2021-07-23 18:29] LABS: Hemoglobin 6.2 GM/DL (14.0-18.0)
[2021-07-23 18:46] LABS: Albumin 2.9 G/DL (3.4-5.0); Bilirubin,Total 1.2 MG/DL (0.20-1.00); Calcium 8.5 MG/DL (8.5-10.1); Osmolality,Calculated 289.4 MOS/KG (273-304); Potassium 4.3 MMOL/L (3.5-5.1); Total Protein 6.1 G/DL (6.4-8.2)
[2021-07-23] MEDS ORDERED: FUROSEMIDE 40 MG/4 ML VIAL IV STA (19:34)
[2021-07-23] MEDS ORDERED: ONDANSETRON 4 MG/2 ML VIAL IV PRN (19:56)
[2021-07-23] MEDS ORDERED: GLUCAGON 1 MG VIAL IM PRN (19:56)
[2021-07-23] MEDS ORDERED: MAGNESIUM SULF RIDER 2 GM/50 ML PREMIX IV PRN (19:56)
[2021-07-23] MEDS ORDERED: MAGNESIUM SULF RIDER 4 GM/100 ML PREMIX IV PRN (19:56)
[2021-07-23] MEDS ORDERED: SODIUM CHLORIDE 0.9% 1,000 ML IV PRN (19:56)
[2021-07-23 20:10] LABS: INR 1.4; PT Patient Result 14.8 SECS (10.5-12.0)
[2021-07-23] MEDS ORDERED: DEXTROSE 10% 250 ML BAG IV PRN (20:15)
[2021-07-23 20:49] LABS: Bilirubin,Urine Negative (Negative); Blood, Urine Small mg/dL (Negative); Glucose,Urine (UA) Negative (Negative); Ketones,Urine Negative (Negative); Mucus,Urine Occasional /LPF (Occasional); Nitrite,Urine Negative (Negative); Protein,Urine Negative; RBC,Urine 3 /HPF (0-4); Squamous Epithelial Cell,Urine Occasional /HPF (0-10); Urine Appearance CLEAR (Clear); Urine Color Straw (Yellow); Urine Specific Gravity 1.005 (1.001-1.035); Urine Urobilinogen < 2.0 EU/DL (<2.0)
[2021-07-23 20:57] LABS: Thyroid Stimulating Hormone 2.58 uIU/ml (0.358-3.74)
[2021-07-23 23:04] LABS: Hematocrit 22.4 VOL% (42.0-52.0)
[2021-07-24] MEDS: LACTULOSE 20 GM/30 ML UDCUP PO SCH ×3 (02:00→20:45)
[2021-07-24] MEDS ORDERED: FUROSEMIDE 40 MG/4 ML VIAL IV SCH (04:00)
[2021-07-24] MEDS: PANTOPRAZOLE 40 MG VIAL IV SCH ×2 (08:29→20:45)
[2021-07-24 09:02] LABS: Albumin 2.6 G/DL (3.4-5.0); Bilirubin,Total 2.3 MG/DL (0.20-1.00); Calcium 7.8 MG/DL (8.5-10.1); Osmolality,Calculated 292.8 MOS/KG (273-304); Potassium 3.3 MMOL/L (3.5-5.1); Risk Ratio 2.65; Total Protein 5.7 G/DL (6.4-8.2); VLDL Cholesterol 10.6 MG/DL
[2021-07-24 09:13] LABS: Basophils % 0.1 % (0.0-0.8); Eosinophils % 0.2 % (0.00-10.9); Hematocrit 28.6 VOL% (42.0-52.0); Immature Granulocytes % 0.9 %; Immature Granulocytes Absolute 0.07 #; Lymphocytes # 0.6 10*3/uL (1.4-4.0); Lymphocytes % 6.8 % (21.2-54.2); Mean Corpuscular Volume 76.5 FL (87-102); Mean Platelet Volume 10.1 FL (9.6-12.0); Monocytes % 7.3 % (1.7-12.7); NRBC # 0.02 10*3/uL; Neutrophils % 84.7 % (38.7-73.9); Platelet Count 112 T/CUMM (130-400); Red Blood Count 3.74 MC/CUMM (3.8-5.5); Red Cell Distribution Width 21.6 % (9.3-17.3); White Blood Count 8.1 T/CUMM (4-12)
[2021-07-24 09:21] LABS: Anisocytosis 2+; Band Neutrophils 9 % (0-10); Burr Cells Few; Lymphocytes 9 % (20-55); Ovalocytes Few; Platelet Estimate Adequate; Segmented Neutrophils 78 % (50-85); Total Cells Counted 100
[2021-07-24 09:22] LABS: Hypochromia Slight
[2021-07-24] MEDS: DEXAMETHASONE 4 MG/1 ML VIAL IV SCH (09:45)
[2021-07-24] MEDS: POTASSIUM CHLORIDE 20 MEQ TABLET PO PRN ×3 (09:45→15:09)
[2021-07-24] MEDS ORDERED: FUROSEMIDE INJ 100 MG in SODIUM CHLORIDE 0.9% 90 ML IV SCH (10:00)
[2021-07-24 11:19] LABS: Ferritin 20.3 ng/mL (26-388)
[2021-07-24 11:44] LABS: INR 1.2; PT Patient Result 13.7 SECS (10.5-12.0)
[2021-07-24] MEDS ORDERED: POTASSIUM CHLORIDE 20 MEQ TABLET PO ONE (12:08)
[2021-07-24] MEDS: FUROSEMIDE 40 MG/4 ML VIAL IV SCH (15:09)
[2021-07-24 15:18] LABS: Hematocrit 27.9 VOL% (42.0-52.0); Hemoglobin 7.9 GM/DL (14.0-18.0)
[2021-07-24 22:27] VITALS: BP 141/81
[2021-07-25 06:53] LABS: Basophils % 0.1 % (0.0-0.8); Hematocrit 26.6 VOL% (42.0-52.0); Hemoglobin 7.6 GM/DL (14.0-18.0); Immature Granulocytes % 0.8 %; Immature Granulocytes Absolute 0.07 #; Lymphocytes # 0.6 10*3/uL (1.4-4.0); Lymphocytes % 6.9 % (21.2-54.2); Mean Corpuscular HGB Conc 28.6 GM/DL (32-36); Mean Corpuscular Volume 76.9 FL (87-102); Mean Platelet Volume 9.7 FL (9.6-12.0); Monocytes % 5.5 % (1.7-12.7); Neutrophils % 86.7 % (38.7-73.9); Platelet Count 93 T/CUMM (130-400); Red Blood Count 3.46 MC/CUMM (3.8-5.5); Red Cell Distribution Width 22.7 % (9.3-17.3); White Blood Count 9.1 T/CUMM (4-12)
[2021-07-25 07:21] LABS: Potassium 3.8 MMOL/L (3.5-5.1)
[2021-07-25 07:23] LABS: Anisocytosis 2+; Ovalocytes Few; Platelet Estimate Decreased
[2021-07-25 07:24] LABS: Hypochromia Slight; Poikilocytosis Slight; Polychromasia Slight; Target Cells Few; Tear Drop Cells Few
[2021-07-25 07:30] LABS: Albumin 2.5 G/DL (3.4-5.0); Bilirubin,Total 1.8 MG/DL (0.20-1.00); Calcium 7.9 MG/DL (8.5-10.1); Potassium 3.8 MMOL/L (3.5-5.1); Total Protein 5.7 G/DL (6.4-8.2)
[2021-07-25] MEDS: LACTULOSE 20 GM/30 ML UDCUP PO SCH ×2 (10:00→20:02)
[2021-07-25] MEDS: DEXAMETHASONE 4 MG/1 ML VIAL IV SCH (10:00)
[2021-07-25] MEDS: PANTOPRAZOLE 40 MG VIAL IV SCH ×2 (10:00→20:02)
[2021-07-25] MEDS: FUROSEMIDE 40 MG/4 ML VIAL IV SCH ×3 (10:00→18:30)
[2021-07-25] MEDS: METOPROLOL TARTRATE 25 MG TABLET PO SCH ×2 (11:29→20:02)
[2021-07-25] MEDS ORDERED: IRON SUCROSE 200 MG in SODIUM CHLORIDE 0.9% 100 ML IV SCH (12:00)
[2021-07-26] MEDS: FUROSEMIDE 40 MG/4 ML VIAL IV SCH ×2 (03:47→11:23)
[2021-07-26 06:30] LABS: Calcium 8.8 MG/DL (8.5-10.1); Osmolality,Calculated 291.1 MOS/KG (273-304); Potassium 4.5 MMOL/L (3.5-5.1)
[2021-07-26 06:36] LABS: Basophils % 0.1 % (0.0-0.8); Hemoglobin 8.4 GM/DL (14.0-18.0); Immature Granulocytes % 1.2 %; Immature Granulocytes Absolute 0.12 #; Lymphocytes # 0.6 10*3/uL (1.4-4.0); Lymphocytes % 5.3 % (21.2-54.2); Mean Corpuscular HGB Conc 27.1 GM/DL (32-36); Mean Corpuscular Volume 79.3 FL (87-102); Mean Platelet Volume 10.9 FL (9.6-12.0); Monocytes % 4.6 % (1.7-12.7); NRBC # 0.05 10*3/uL; Neutrophils % 88.8 % (38.7-73.9); Platelet Count 104 T/CUMM (130-400); Red Blood Count 3.91 MC/CUMM (3.8-5.5); Red Cell Distribution Width 24.4 % (9.3-17.3); White Blood Count 10.3 T/CUMM (4-12)
[2021-07-26 06:52] LABS: Hypochromia 1+; Microcytosis 1+; Platelet Estimate Decreased
[2021-07-26 07:01] LABS: Albumin 2.7 G/DL (3.4-5.0); Bilirubin,Total 2.7 MG/DL (0.20-1.00); Calcium 8.5 MG/DL (8.5-10.1); Osmolality,Calculated 297.7 MOS/KG (273-304); Potassium 4.6 MMOL/L (3.5-5.1); Total Protein 5.9 G/DL (6.4-8.2)
[2021-07-26] MEDS: DEXAMETHASONE 4 MG/1 ML VIAL IV SCH (08:35)
[2021-07-26] MEDS: LACTULOSE 20 GM/30 ML UDCUP PO SCH (08:35)
[2021-07-26] MEDS: METOPROLOL TARTRATE 25 MG TABLET PO SCH (08:36)
[2021-07-26] MEDS: PANTOPRAZOLE 40 MG VIAL IV SCH (08:37)
[2021-07-26] MEDS ORDERED: FERRIC GLUCONATE COMPLEX 125 MG in SODIUM CHLORIDE 0.9% 100 ML IV SCH (09:00)
[2021-07-26] MEDS ORDERED: DESITIN 4OZ/NYSTATIN 15 GRAM MIXTURE PASTE TOP SCH (15:00)
== END 2021-07-26 15:57 | disposition home or self-care (01) | DRG 813 ==
LOC: EDUNIT# → EDBD → N.ED 17:13 → SUATTDRO 19:25 → N.TELEN 19:25 → N.CC 21:29
PROVIDERS: ADMIT Internal Medicine; ATTEND Hospitalist